=== PATIENT | female | born 1940 | race Caucasian/White ===

== ENCOUNTER 2018-07-31 23:50 | Observation (INO) | payer OTHER, MEDICAID ==
[2018-08-01 00:16] LABS: ADD MAN DIFF? NO
[2018-08-01] MEDS: DILTIAZEM 25 MG INJ IV (00:17)
[2018-08-01 00:24] LABS: WHITE BLOOD COUNT 9.8 10^3/ul (4.8-10.8)
[2018-08-01 00:24] LABS: BASOPHIL # 0.1 10^3/ul (0.0-0.1); BASOPHILS % 0.5 % (0.0-2.0); EOSINOPHILS # 0.2 10^3/ul (0.0-0.5); EOSINOPHILS % 1.9 % (0.0-7.0); HEMATOCRIT 44.1 % (37.0-47.0); HEMOGLOBIN 14.3 g/dl (12.0-16.0); LYMPHOCYTES % 20.3 % (15.0-51.0); MEAN CORPUSCULAR HGB CONC 32.4 g/dl (32.0-37.0); MEAN CORPUSCULAR VOLUME 86.5 fl (82.0-101.0); MEAN PLATELET VOLUME 9.8 fl (7.4-10.4); MONOCYTE # 0.9 10^3/ul (0.3-0.9); MONOCYTES % 8.9 % (0.0-11.0); NEUTROPHIL # 6.7 10^3/ul (1.6-7.5); NEUTROPHILS % 68.2 % (39.0-77.0); PLATELET COUNT 257 10^3/UL (140-415); RED CELL DISTRIBUTION WIDTH 12.6 % (11.5-14.5)
[2018-08-01] MEDS: SOD CHLORIDE 0.9% 500 ML IV (00:27)
[2018-08-01 00:38] LABS: ALANINE AMINOTRANSFERASE 20 IU/L (13-69); ALBUMIN 4.5 g/dl (3.3-4.9); ALBUMIN/GLOBULIN RATIO 1.45; ALKALINE PHOSPHATASE 143 IU/L (42-121); ANION GAP 11 (5-13); ASPARTATE AMINO TRANSFERASE 21 IU/L (15-46); BILIRUBIN,INDIRECT 0.1 mg/dl (0-1.1); BILIRUBIN,TOTAL 0.1 mg/dl (0.2-1.3); BLOOD UREA NITROGEN 18 mg/dl (7-20); CALCIUM 9.9 mg/dl (8.4-10.2); CARBON DIOXIDE 27 mmol/L (21-31); CHLORIDE 105 mmol/L (97-110); CREATININE 0.67 mg/dl (0.44-1.00); GLUCOSE 131 mg/dl (70-220); POTASSIUM 3.7 mmol/L (3.5-5.1); SODIUM 143 mmol/L (135-144); TOTAL PROTEIN 7.6 g/dl (6.1-8.1)
[2018-08-01 00:50] LABS: B-TYPE NATRIURETIC PEPTIDE 298 PG/ML (0-450); TROPONIN-I < 0.012 ng/ml (0.000-0.120)
[2018-08-01] MEDS ORDERED: BISACODYL 10 MG SUPP PR (02:30)
[2018-08-01] MEDS ORDERED: NACL 0.9% 3 ML SYG IV (02:30)
[2018-08-01] MEDS ORDERED: NITROGLYCERIN (SL) 0.4 MG TAB SL (02:30)
[2018-08-01] MEDS ORDERED: MAGNESIUM HYDROXIDE 30ML CUP PO (02:30)
[2018-08-01] MEDS ORDERED: ONDANSETRON 4 MG INJ IV (02:30)
[2018-08-01] MEDS ORDERED: DOCUSATE SODIUM 100 MG CAP PO (02:30)
[2018-08-01 03:00] LABS: FREE T4 (FREE THYROXINE) 1.27 ng/dl (0.85-1.93)
[2018-08-01] MEDS ORDERED: DEXTROSE 50% 50 ML SYRINGE IV ×2 (03:30)
[2018-08-01] MEDS ORDERED: GLUCOSE GEL 15 GRAM TUBE PO ×2 (03:30)
[2018-08-01] MEDS ORDERED: GLUCOSE GEL 15 GRAM TUBE BUCCAL (03:30)
[2018-08-01] MEDS ORDERED: GLUCAGON 1 MG INJ IM (03:30)
[2018-08-01] MEDS: METOPROLOL 25 MG TAB PO ×2 (04:00→08:57)
[2018-08-01] MEDS: DILTIAZEM 30 MG TAB PO (05:14)
[2018-08-01 06:10] LABS: CREATINE KINASE 46 IU/L (23-200)
[2018-08-01 06:11] LABS: ANION GAP 8 (5-13); BLOOD UREA NITROGEN 14 mg/dl (7-20); CALCIUM 9.2 mg/dl (8.4-10.2); CARBON DIOXIDE 26 mmol/L (21-31); CHLORIDE 106 mmol/L (97-110); CREATININE 0.57 mg/dl (0.44-1.00); GLUCOSE 180 mg/dl (70-220); MAGNESIUM 1.5 mg/dl (1.7-2.5); SODIUM 140 mmol/L (135-144)
[2018-08-01 06:20] LABS: CK INDEX 1.5; CK-MB 0.68 ng/ml (0.0-2.4); TROPONIN-I < 0.012 ng/ml (0.000-0.120)
[2018-08-01 06:45] LABS: HEMOGLOBIN A1C 6.7 % (0-5.9)
[2018-08-01] MEDS: INSULIN ASPART [NOVOLOG] 3 ML PEN SC ×4 (07:41→21:00)
[2018-08-01] MEDS: FAMOTIDINE 20 MG TAB PO ×2 (08:56→21:21)
[2018-08-01] MEDS: LINAGLIPTIN 5 MG TABLET PO (08:56)
[2018-08-01] MEDS: MAGNESIUM SULFATE 2 GM/50 ML 50 ML IVPB (08:57)
[2018-08-01] MEDS: ENOXAPARIN 60 MG/0.6 ML SYG SC (09:03)
[2018-08-01 11:58] LABS: CREATINE KINASE 51 IU/L (23-200)
[2018-08-01] MEDS: ASPIRIN 81 MG TAB PO (12:06)
[2018-08-01] MEDS: AMLODIPINE 5 MG TAB PO (12:06)
[2018-08-01 12:11] LABS: CK INDEX 1.6; CK-MB 0.82 ng/ml (0.0-2.4); TROPONIN-I < 0.012 ng/ml (0.000-0.120)
[2018-08-01] MEDS: INFLUENZA VIRUS VACCINE 0.5 ML (DISPENSING) IM* (12:19)
[2018-08-01] MEDS: ATORVASTATIN 20 MG TAB PO (21:21)
[2018-08-01] MEDS: NORTRIPTYLINE 10 MG CAP PO (21:50)
[2018-08-02] MEDS: ACCU-CHEK XX (02:00)
[2018-08-02 06:34] LABS: ANION GAP 8 (5-13); BLOOD UREA NITROGEN 20 mg/dl (7-20); CALCIUM 8.9 mg/dl (8.4-10.2); CARBON DIOXIDE 24 mmol/L (21-31); CHLORIDE 107 mmol/L (97-110); GLUCOSE 201 mg/dl (70-220); POTASSIUM 3.4 mmol/L (3.5-5.1); SODIUM 139 mmol/L (135-144)
[2018-08-02] MEDS: INSULIN ASPART [NOVOLOG] 3 ML PEN SC ×4 (08:00→21:00)
[2018-08-02] MEDS: AMLODIPINE 5 MG TAB PO (08:10)
[2018-08-02] MEDS: FAMOTIDINE 20 MG TAB PO ×2 (08:11→20:37)
[2018-08-02] MEDS: ASPIRIN 81 MG TAB PO (08:11)
[2018-08-02] MEDS: DILTIAZEM 25 MG INJ IV ×3 (08:11→19:01)
[2018-08-02] MEDS: EZETIMIBE 10 MG TAB PO (08:24)
[2018-08-02] MEDS: POTASSIUM CHLORIDE (SR) 20 MEQ TAB PO ×2 (08:25→10:36)
[2018-08-02] MEDS: LINAGLIPTIN 5 MG TABLET PO (08:32)
[2018-08-02] MEDS ORDERED: FENTAnyl 50 MCG/ML VIAL (12:00)
[2018-08-02] MEDS ORDERED: LIDOCAINE 2% (MDV) 20 ML INJ (12:00)
[2018-08-02] MEDS ORDERED: MIDAZOLAM 1 MG/ML 2 ML INJ (12:00)
[2018-08-02] MEDS: POLYMYXIN/BACITRACIN 1L IRRIG IRR (12:00)
[2018-08-02] MEDS ORDERED: HEPARIN 1000 UNITS/NS (A-LINE) 1,000 ML (12:00)
[2018-08-02] MEDS ORDERED: CEFAZOLIN 1 GM/50 ML (PMX) 100 ML IVPB (12:00)
[2018-08-02] MEDS ORDERED: IODIXANOL LOCM 50 ML BTL (12:01)
[2018-08-02] MEDS ORDERED: SOD CHLORIDE 0.9% 500 ML (12:02)
[2018-08-02] MEDS: SOD CHLORIDE 0.9% 1,000 ML IV (13:46)
[2018-08-02] MEDS: CEFAZOLIN 1 GM/50 ML (PMX) 50 ML IVPB ×2 (13:46→22:43)
[2018-08-02] MEDS ORDERED: CEFAZOLIN 1 GM/50 ML (PMX) 50 ML IVPB (14:00)
[2018-08-02] MEDS: DILTIAZEM 60 MG TAB PO (18:29)
[2018-08-02] MEDS: ATORVASTATIN 20 MG TAB PO (20:37)
[2018-08-02] MEDS: ACETAMINOPHEN 325 MG TAB PO (20:38)
[2018-08-02] MEDS: NORTRIPTYLINE 10 MG CAP PO (20:38)
[2018-08-02] MEDS: METOPROLOL 50 MG TAB PO (20:41)
[2018-08-02] MEDS ORDERED: HYDROCODONE/APAP (5/325) TAB PO (22:30)
[2018-08-02] MEDS ORDERED: morphine 4 MG/ML VIAL IV (22:30)
[2018-08-03] MEDS: DILTIAZEM 60 MG TAB PO ×2 (00:49→05:01)
[2018-08-03] MEDS: ACCU-CHEK XX (02:58)
[2018-08-03] MEDS: ACETAMINOPHEN 325 MG TAB PO ×2 (05:01→10:51)
[2018-08-03] MEDS: CEFAZOLIN 1 GM/50 ML (PMX) 50 ML IVPB (05:01)
[2018-08-03 05:38] LABS: ADD MAN DIFF? NO
[2018-08-03 05:47] LABS: WHITE BLOOD COUNT 5.6 10^3/ul (4.8-10.8)
[2018-08-03 05:47] LABS: BASOPHILS % 0.7 % (0.0-2.0); EOSINOPHILS # 0.1 10^3/ul (0.0-0.5); EOSINOPHILS % 1.6 % (0.0-7.0); HEMATOCRIT 38.4 % (37.0-47.0); HEMOGLOBIN 12.5 g/dl (12.0-16.0); LYMPHOCYTES # 1.3 10^3/ul (0.8-2.9); LYMPHOCYTES % 23.8 % (15.0-51.0); MEAN CORPUSCULAR HEMOGLOBIN 28.3 pg (29.0-33.0); MEAN CORPUSCULAR HGB CONC 32.6 g/dl (32.0-37.0); MEAN CORPUSCULAR VOLUME 87.1 fl (82.0-101.0); MEAN PLATELET VOLUME 10.3 fl (7.4-10.4); MONOCYTE # 0.6 10^3/ul (0.3-0.9); MONOCYTES % 10.2 % (0.0-11.0); NEUTROPHIL # 3.6 10^3/ul (1.6-7.5); NEUTROPHILS % 63.5 % (39.0-77.0); PLATELET COUNT 206 10^3/UL (140-415); RED BLOOD COUNT 4.41 10^6/ul (4.20-5.40); RED CELL DISTRIBUTION WIDTH 13.1 % (11.5-14.5)
[2018-08-03 06:05] LABS: MAGNESIUM 1.8 mg/dl (1.7-2.5)
[2018-08-03 06:24] LABS: ANION GAP 7 (5-13); BLOOD UREA NITROGEN 18 mg/dl (7-20); CALCIUM 8.2 mg/dl (8.4-10.2); CARBON DIOXIDE 24 mmol/L (21-31); CHLORIDE 110 mmol/L (97-110); CREATININE 0.63 mg/dl (0.44-1.00); GLUCOSE 157 mg/dl (70-220); POTASSIUM 4.2 mmol/L (3.5-5.1); SODIUM 141 mmol/L (135-144)
[2018-08-03] MEDS: INSULIN ASPART [NOVOLOG] 3 ML PEN SC ×2 (07:46→12:12)
[2018-08-03] MEDS: METOPROLOL 50 MG TAB PO (08:32)
[2018-08-03] MEDS: ASPIRIN 81 MG TAB PO (08:32)
[2018-08-03] MEDS: EZETIMIBE 10 MG TAB PO (08:32)
[2018-08-03] MEDS: LINAGLIPTIN 5 MG TABLET PO (08:32)
[2018-08-03] MEDS: FAMOTIDINE 20 MG TAB PO (08:32)
[2018-08-03] MEDS: APIXABAN 5 MG TABLET PO (08:32)
[2018-08-03] MEDS: MAGNESIUM SULFATE 2 GM/50 ML 50 ML IVPB (09:34)
[2018-08-03] MEDS: SOD CHLORIDE 0.9% 1,000 ML IV (10:52)
[2018-08-03] MEDS: DILTIAZEM (CD) 120 MG CAP PO (12:32)
== END 2018-08-03 17:14 | disposition home or self-care (01) ==
LOC: E/R 23:50 → 6WM 08-01 01:12
DX: I49.5 Sick sinus syndrome (principal); I10 Essential (primary) hypertension; E78.5 Hyperlipidemia, unspecified; E11.9 Type 2 diabetes mellitus without complications; I48.91 Unspecified atrial fibrillation; I25.10 Atherosclerotic heart disease of native coronary artery without angina pectoris; Z23 Encounter for immunization
CPT/HCPCS: 33208; 71045; 76705; 80048; 80053; 82550; 82553; 82962; 83036; 83735; 83880; 84439; 84443; 84484; 85025; 90686; 93005; 93306; G0378

== ENCOUNTER 2018-08-15 15:17 | Inpatient (IN) | payer OTHER ==
[2018-08-15] MEDS ORDERED: ONDANSETRON 4 MG INJ IV (16:34)
[2018-08-15] MEDS ORDERED: SOD CHLORIDE 0.9% 1,000 ML IV (16:34)
[2018-08-15 19:53] LABS: ADD MAN DIFF? NO
[2018-08-15 19:54] LABS: WHITE BLOOD COUNT 7.5 10^3/ul (4.8-10.8)
[2018-08-15 19:54] LABS: BASOPHIL # 0.1 10^3/ul (0.0-0.1); BASOPHILS % 0.7 % (0.0-2.0); EOSINOPHILS # 0.2 10^3/ul (0.0-0.5); HEMATOCRIT 36.4 % (37.0-47.0); HEMOGLOBIN 11.7 g/dl (12.0-16.0); LYMPHOCYTES # 1.4 10^3/ul (0.8-2.9); LYMPHOCYTES % 18.3 % (15.0-51.0); MEAN CORPUSCULAR HEMOGLOBIN 28.5 pg (29.0-33.0); MEAN CORPUSCULAR HGB CONC 32.1 g/dl (32.0-37.0); MEAN CORPUSCULAR VOLUME 88.6 fl (82.0-101.0); MEAN PLATELET VOLUME 9.6 fl (7.4-10.4); MONOCYTE # 0.5 10^3/ul (0.3-0.9); MONOCYTES % 7.1 % (0.0-11.0); NEUTROPHIL # 5.4 10^3/ul (1.6-7.5); NEUTROPHILS % 71.6 % (39.0-77.0); PLATELET COUNT 282 10^3/UL (140-415); RED BLOOD COUNT 4.11 10^6/ul (4.20-5.40); RED CELL DISTRIBUTION WIDTH 13.2 % (11.5-14.5)
[2018-08-15] MEDS: SOD CHLORIDE 0.9% 1,000 ML IV (20:07)
[2018-08-15 20:09] LABS: INR 0.99; PROTIME 13.2 Sec (11.9-14.9)
[2018-08-15 20:10] LABS: PARTIAL THROMBOPLASTIN TIME 32.3 Sec (23.0-35.0)
[2018-08-15 20:13] LABS: ADD UMIC YES; UR ASCORBIC ACID NEGATIVE (NEGATIVE); UR BACTERIA FEW /HPF (NONE SEEN); UR BILIRUBIN (Dip) NEGATIVE (NEGATIVE); UR BLOOD (Dip) 1+ mg/dL (NEGATIVE); UR CLARITY CLEAR (CLEAR); UR COLOR YELLOW (YELLOW); UR GLUCOSE (Dip) 1+ mg/dL (NEGATIVE); UR KETONES (Dip) NEGATIVE (NEGATIVE); UR LEUKOCYTE ESTERASE (Dip) NEGATIVE Leu/ul (NEGATIVE); UR MUCUS FEW /HPF (NONE SEEN); UR NITRITE (Dip) NEGATIVE (NEGATIVE); UR RBC 2 /HPF (0-5); UR SPECIFIC GRAVITY (Dip) 1.017 (1.003-1.030); UR TOTAL PROTEIN (Dip) NEGATIVE (NEGATIVE); UR UROBILINOGEN (Dip) NEGATIVE (NEGATIVE); UR WBC 1 /HPF (0-5)
[2018-08-15 20:18] LABS: ALANINE AMINOTRANSFERASE 19 IU/L (13-69); ALBUMIN 3.7 g/dl (3.3-4.9); ALBUMIN/GLOBULIN RATIO 1.19; ALKALINE PHOSPHATASE 115 IU/L (42-121); ANION GAP 12 (5-13); ASPARTATE AMINO TRANSFERASE 19 IU/L (15-46); BILIRUBIN,INDIRECT 0.3 mg/dl (0-1.1); BILIRUBIN,TOTAL 0.3 mg/dl (0.2-1.3); BLOOD UREA NITROGEN 14 mg/dl (7-20); CALCIUM 8.6 mg/dl (8.4-10.2); CARBON DIOXIDE 22 mmol/L (21-31); CHLORIDE 108 mmol/L (97-110); GLUCOSE 187 mg/dl (70-220); LIPASE 105 U/L (23-300); POTASSIUM 3.8 mmol/L (3.5-5.1); SODIUM 142 mmol/L (135-144); TOTAL PROTEIN 6.8 g/dl (6.1-8.1)
[2018-08-15 20:27] LABS: B-TYPE NATRIURETIC PEPTIDE 997 PG/ML (0-450)
[2018-08-15 20:30] LABS: TROPONIN-I < 0.012 ng/ml (0.000-0.120)
[2018-08-15] MEDS: DILTIAZEM 25 MG INJ IV ×2 (21:26→22:47)
[2018-08-16] MEDS ORDERED: ACETAMINOPHEN 325 MG TAB PO (01:00)
[2018-08-16] MEDS ORDERED: ONDANSETRON 4 MG INJ IV (01:00)
[2018-08-16] MEDS ORDERED: morphine 2 MG INJ IV (01:00)
[2018-08-16] MEDS ORDERED: GLUCOSE GEL 15 GRAM TUBE PO ×2 (01:30)
[2018-08-16] MEDS ORDERED: GLUCOSE GEL 15 GRAM TUBE BUCCAL (01:30)
[2018-08-16] MEDS ORDERED: GLUCAGON 1 MG INJ IM (01:30)
[2018-08-16] MEDS ORDERED: DEXTROSE 50% 50 ML SYRINGE IV ×2 (01:30)
[2018-08-16] MEDS: DILTIAZEM 60 MG TAB PO ×2 (01:32→05:52)
[2018-08-16] MEDS: DIGOXIN 0.25 MG TAB PO ×2 (01:32→13:55)
[2018-08-16] MEDS: ACCU-CHEK XX (01:40)
[2018-08-16] MEDS: APIXABAN 5 MG TABLET PO ×2 (08:26→20:54)
[2018-08-16] MEDS: INSULIN ASPART [NOVOLOG] 3 ML PEN SC ×4 (08:29→21:00)
[2018-08-16] MEDS: DILTIAZEM (CD) 180 MG CAP PO ×2 (11:00→20:54)
[2018-08-16] MEDS: NORTRIPTYLINE 10 MG CAP PO (20:55)
[2018-08-16] MEDS: INSULIN GLARGINE [LANTus] (100 UNITS/ML) SYG SC (21:28)
[2018-08-17] MEDS: ACCU-CHEK XX (02:00)
[2018-08-17] MEDS: INSULIN ASPART [NOVOLOG] 3 ML PEN SC ×2 (07:33→11:43)
[2018-08-17] MEDS: APIXABAN 5 MG TABLET PO (08:09)
[2018-08-17] MEDS: DILTIAZEM (CD) 180 MG CAP PO (08:09)
[2018-08-17] MEDS ORDERED: DIGOXIN 0.125 MG TAB PO (13:00)
[2018-08-17] MEDS: DIGOXIN 0.125 MG TAB PO (13:11)
== END 2018-08-17 14:33 | disposition home or self-care (01) | DRG 310 ==
LOC: E/R 15:17 → TEL 21:20
DX: I48.0 Paroxysmal atrial fibrillation (principal); I10 Essential (primary) hypertension; E78.5 Hyperlipidemia, unspecified; E11.9 Type 2 diabetes mellitus without complications; Z95.0 Presence of cardiac pacemaker; Z79.84 Long term (current) use of oral hypoglycemic drugs; Z79.82 Long term (current) use of aspirin; Z79.01 Long term (current) use of anticoagulants
CPT/HCPCS: 36415; 71045; 80053; 81001; 82962; 83690; 83880; 84484; 85025; 85610; 85730; 87081; 93005; 99291-25